=== PATIENT | female | born 1975 | race Two or more races ===

== ENCOUNTER → 2017-08-23 10:09 | Emergency (ER) | payer BC ==
[~2017-08-23 10:09] MED LIST: Dexamethasone IV* 4 MG/ML 1 ML (4 MG) IM ONE; Naproxen TAB* 250 MG PO ONE
--- NOTE | 2017-08-23 11:59 | ED ---
Back Pain - HPI Summary HPI Summary: 42 female presents to ED with complaints of lower left back and gluteal pain that began 2-3 days ago and has been worsening. Patient states she began playing tennis for the first time in a while which is when her lower back pain began. She then was cleaning and lifting while moving over the weekend and feels this worsened her pain. Denies numbness/tingling, weakness, bladder/bowel incontinence and saddle anesthesia. States pain is worse with twisting, laying down and movement. Better when sitting and bearing weight on right hip/side rather than left. No rash, bruising or swelling. No other complaints. Took ibuprofen 600mg last night and this morning around 7am without much relief. Patient however takes it somewhat often for her chronic migraines. No other PMHx. Denies urinary and genitalia complaints. No nausea, vomiting, trouble breathing, chest pain or abdominal pain. - History of Current Complaint Chief Complaint: EDBackInjuryPain Stated Complaint: BACK PAIN Time Seen by Provider: 08/23/17 11:08 Hx Obtained From: Patient Onset/Duration: Sudden Onset, Lasting Days, Still Present, Worse Since Onset/Duration: Started Days Ago, Traumatic, Still Present, Worse Since Timing: Constant Back Pain Location: Is Discrete @ - left lower back, left mid diffuse glute Severity Initially: Moderate Severity Currently: Moderate Pain Intensity: 6 Pain Scale Used: 0-10 Numeric Character: Sharp, Aching, Spasmodic Aggravating Symptom(s): Movement, Lifting, Other - laying down Alleviating Symptom(s): Rest, Position, Heat Associated Signs And Symptoms: Positive: Negative. Negative: Swelling, Redness , Bruising, Weakness, Numbness, Tingling, Abdominal Pain, Flank Pain - Risk Factors AAA Risk Factors: Negative TAD Risk Factors: Negative Cauda Equina Risk Factors: Negative Epidural Abscess Risk Factors: Negative - Allergies/Home Medications Allergies/Adverse Reactions: Allergies Allergy/AdvReac Type Severity Reaction Status Date / Time No Known Allergies Allergy Verified 08/23/17 10:12 PMH/Surg Hx/FS Hx/Imm Hx Endocrine/Hematology History: Denies: Hx Diabetes Cardiovascular History: Denies: Hx Hypertension Respiratory History: Denies: Hx Asthma - Surgical History Surgery Procedure, Year, and Place: none - Immunization History Immunizations Up to Date: Yes Infectious Disease History: No Infectious Disease History: Denies: Traveled Outside the [place] in Last 30 Days - Family History Known Family History: Positive: None - Social History Alcohol Use: None Substance Use Type: Reports: None Smoking Status (MU): Never Smoked Tobacco Review of Systems Constitutional: Negative Cardiovascular: Negative Respiratory: Negative Gastrointestinal: Negative Positive: Arthralgia, Myalgia - lower back pain Neurological: Negative All Other Systems Reviewed And Are Negative: Yes Physical Exam Triage Information Reviewed: Yes Vital Signs On Initial Exam: Initial Vitals Temp Pulse Resp BP Pulse Ox 98 F 62 16 108/50 98 08/23/17 10:12 08/23/17 10:12 08/23/17 10:12 08/23/17 10:12 08/23/17 10:12 Vital Signs Reviewed: Yes Appearance: Positive: Well-Appearing, Well-Nourished, Pain Distress - moderate with certain movement and changing position Skin: Positive: Warm, Skin Color Reflects Adequate Perfusion, Dry, Other - no edema, ecchymosis or signs of obvious trauma/deformity. Negative: Cold, Numb, Soft, Pale, Erythema @ Head/Face: Positive: Normal Head/Face Inspection Eyes: Positive: Conjunctiva Clear ENT: Positive: Hearing grossly normal Neck: Positive: Supple, Nontender Respiratory/Lung Sounds: Positive: Clear to Auscultation, Breath Sounds Present. Negative: Rales, Rhonchi, Wheezes Cardiovascular: Positive: Normal, RRR, Pulses are Symmetrical in both Upper and Lower Extremities. Negative: Murmur, Rub, Leg Edema Left, Leg Edema Right Abdomen Description: Positive: Nontender, Soft. Negative: CVA Tenderness (R), CVA Tenderness (L) Bowel Sounds: Positive: Present Musculoskeletal: Positive: Normal, Strength/ROM Intact - pain with movement of lower back with twisting and changing positions but able. LE FROM. negative striaght leg raise, Pain @ - palpation of left paraspinal muscles and lower glute around SI joint, Other - no crepitus step off or obvious deformity. Negative: Edema Left, Edema Right Neurological: Positive: Normal, Sensory/Motor Intact - sensation intact, no weakness, Alert, Oriented to Person Place, Time, CN Intact II-III, Reflexes Intact, NV Bundle Intact Distally, Normal Gait Psychiatric: Positive: Affect/Mood Appropriate Diagnostics - Vital Signs Vital Signs Temp Pulse Resp BP Pulse Ox 08/23/17 10:12 98 F 62 16 108/50 98 - Laboratory Lab Statement: Any lab studies that have been ordered have been reviewed, and results considered in the medical decision making process. - Radiology lumbosacral Xray Interpretation: No Acute Changes - FACET OSTEOARTHRITIS ALONG THE LOWER LUMBAR SPINE Radiology Interpretation Completed By: Radiologist Back Pain Course/Dx - Course Course Of Treatment: x-ray obtained and negative for acute injury/etiolgy. given naproxen and decadron. will give flexeril and norco to take at home. RICE. heating pad. Follow up with PCP. Aware of worsening signs and symptoms. No physical activity. No concern for any other emergent etiology at this time. - Diagnoses Differential Diagnosis/HQI/PQRI: Positive: Fracture, Herniated Disc, Strain, Sprain Provider Diagnoses: Lumbosacral strain Discharge - Discharge Plan Condition: Stable Disposition: HOME Prescriptions: Cyclobenzaprine TAB* [Flexeril 10 MG TAB*] 10 mg PO BID PRN #10 tab PRN Reason: Spasms HYDROcodone/ACETAMIN 5-325 MG* [Collins 5-325 TAB*] 1 tab PO Q4H PRN #10 tab MDD 4 PRN Reason: Pain Naproxen TAB* [Naprosyn 375 mg TAB*] 375 mg PO Q8H PRN #30 tab PRN Reason: Pain Patient Education Materials: Low Back Strain (ED), Core Strengthening Exercises (ED), Lower Back Exercises (ED) Forms: *Work Release Referrals: No Primary Care Phys,NOPCP [Primary Care Provider] - [facility] [Outside] Additional Instructions: Take prescribed medication as directed. Naproxen for pain and inflammation, take with food. As needed. For atleast 3-5 days. Hydrocodone for breakthrough pain in between naproxen. Do not drive while taking this medication as it is a narcotic. Muscle relaxer before sleeping (naps/bedtime). Do not drive as this will make you drowsy. Rest, heating pad and topical numbing agents such as (icey/hot) as desired. Do not lift or participate in strenuous physical activities until symptoms completely improve. If symptoms worsen (worse pain, new pain, numbness, weakness or bladder/bowel incontinence) please seek medical attention immediately. Follow up with primary care provider.
--- NOTE | 2017-08-23 12:13 | RAD ---
HISTORY: Back pain COMPARISONS: None VIEWS: 5 , Frontal, lateral, coned-down lateral sacral, and bilateral oblique views of the lumbar spine. FINDINGS: ALIGNMENT: The alignment is normal. VERTEBRAL BODIES: The vertebral body heights are normal. The interpedicular distances are normal. JOINTS: There is facet hypertrophic change at L4-L5 and L5-S1 INTERVERTEBRAL DISCS: The intervertebral disc heights are normal. SOFT TISSUE: Unremarkable. OTHER: The pelvis is unremarkable. The lung bases are clear. IMPRESSION: FACET OSTEOARTHRITIS ALONG THE LOWER LUMBAR SPINE
[2017-08-23 12:33] VITALS: BP 96/50
== END | disposition home or self-care (01) ==
LOC: ED 10:09
DX: S39.012A Strain of muscle, fascia and tendon of lower back, initial encounter (principal); X50.9XXA Other and unspecified overexertion or strenuous movements or postures, initial encounter; Y93.9 Activity, unspecified; Y92.9 Unspecified place or not applicable
CPT/HCPCS: 72110; 99282; A9270-GY; J1100